=== PATIENT | female | born 1980 | race Caucasian/White ===

== ENCOUNTER 2023-02-19 17:27 | Emergency (ER) | payer OTHER, SELFPAY ==
[2023-02-19 17:34] VITALS: BP 125/79; PULSE 78; RESP 16; TEMP 36.3; O2SAT 99
--- NOTE | 2023-02-19 17:34 | ED.LOWEXIN ---
HPI - Extremity Injury (Lower) General Chief Complaint: Extremity Injury, Lower Stated Complaint: Left Foot Pain and Swelling Time Seen by Provider: 02/19/23 17:43 Source: patient and RN notes reviewed Mode of arrival: ambulatory Limitations: no limitations History of Present Illness HPI Narrative: 42-year-old female presents concern for left dorsal foot pain that started yesterday. Reports she was doing a lot of cleaning around her house yesterday and more active than usual. She denies any injury or trauma. She reports she has used ice. She cannot take ibuprofen because she uses Celebrex. She denies warmth, redness. Reports feeling and knot at the top of her foot. MD complaint: other (Foot pain) Related Data Home Medications Medication Instructions Recorded Confirmed baclofen 10 mg tablet 10 mg PO QID PRN MUSCLE SPASMS 02/19/23 02/19/23 buspirone 30 mg tablet 30 mg PO BID 02/19/23 02/19/23 celecoxib 200 mg capsule 200 mg PO BID 02/19/23 02/19/23 erenumab-aooe 140 mg/mL 140 mg subcut MONTHLY 02/19/23 02/19/23 subcutaneous auto-injector (Aimovig Autoinjector) escitalopram oxalate 20 mg tablet 20 mg PO DAILY 02/19/23 02/19/23 gabapentin 600 mg tablet 600 mg PO TID 02/19/23 02/19/23 hydroxyzine HCl 25 mg tablet 25 mg PO BID PRN Anxiety 02/19/23 02/19/23 lemborexant 10 mg tablet (Dayvigo) 10 mg PO DAILY 02/19/23 02/19/23 lisdexamfetamine 60 mg capsule 60 mg PO QAM 02/19/23 02/19/23 (Vyvanse) lisinopril 20 1 tablet PO DAILY 02/19/23 02/19/23 mg-hydrochlorothiazide 12.5 mg tablet lorazepam 1 mg tablet 1 mg PO DAILY PRN Anxiety 02/19/23 02/19/23 lumateperone 42 mg capsule 42 mg PO QAM 02/19/23 02/19/23 (Caplyta) modafinil 200 mg tablet 200 mg PO QAM 02/19/23 02/19/23 pantoprazole 40 mg tablet,delayed 40 mg PO DAILY 02/19/23 02/19/23 release sumatriptan succinate 100 mg tablet 100 mg PO DAILY PRN MIGRAINES 02/19/23 02/19/23 Allergies Allergy/AdvReac Type Severity Reaction Status Date / Time No Known Allergies Allergy Verified 02/19/23 17:42 Review of Systems Review of Systems: CONSTITUTIONAL: Denies malaise, chills, sweats, or fever. SKIN: Denies rash or itching, open skin, laceration, abrasion, redness, warmth MUSCULOSKELETAL: Reports left dorsal foot pain with a palpable area of swelling NEUROLOGIC: Denies numbness, weakness All systems reviewed & are unremarkable except as noted in HPI and below PMFSH Comments At time of signature, agree with nursing past medical, surgical, social and family history. There is no relevant family history pertinent to the presenting complaint Exam Narrative: GENERAL: Well-appearing, well-nourished, and in no acute distress. HEAD: Normocephalic, atraumatic. EYES: PERRLA, conjunctivae clear NECK: Supple. CHEST: Speaks in full sentences. No respiratory distress. HEART: Regular rate and rhythm. Normal and equal peripheral pulses. EXTREMITIES: Left foot, digits have has normal strength and sensation, normal range of motion. No gross edema or ecchymosis. 5/5 strength with digit and ankle flexion and extension. Normal sensation with sensitivity to light touch and pain. Dorsal tenderness with approximately 2 cm slightly raised area of tenderness consistent with tendinitis. No open wounds, no skin tenting, no devitalized tissue or atrophy, no trophic changes, no obvious deformity, alignment normal, nearby joints and structures intact. Distal pulses palpable and equal bilaterally, skin warm, dry, pink. Capillary refill less than 3 seconds. SKIN: Warm, dry, no rash. NEURO: Alert and oriented x3. PSYCH: Normal mood and affect Course Course Emergency Course: Patient is aware of diagnosis, understands and agrees to treatment plan. Anticipatory guidance given. Patient agrees to follow-up as directed and is aware of reasons to seek care at the emergency department. Portions of this record may have been created with voice recognition software Level of Care: [facility]
[2023-02-19 17:46] VITALS: BP 125/79; PULSE 78; RESP 16; TEMP 36.3; O2SAT 99
== END 2023-02-19 17:55 | disposition home or self-care (01) ==
PROVIDERS: Emergency Provider Nurse Practitioner; PCP Family Medicine
DX: M77.8 Other enthesopathies, not elsewhere classified (principal); E78.00 Pure hypercholesterolemia, unspecified; I10 Essential (primary) hypertension; M79.7 Fibromyalgia; F41.9 Anxiety disorder, unspecified
CPT/HCPCS: 99212; G0463